=== PATIENT | female | born 1970 | race Caucasian/White ===

== ENCOUNTER 2022-02-15 13:01 | Outpatient (CLI) | payer OTHER | END 2022-02-15 13:02 | disposition home or self-care (01) | LOC: BICCT 13:01 | PROVIDERS: ATTEND Student in an Organized Health Care Education/Training Program | DX: J98.4 Other disorders of lung (principal); R91.8 Other nonspecific abnormal finding of lung field; E27.8 Other specified disorders of adrenal gland | CPT/HCPCS: 71260; 82565 ==

== ENCOUNTER 2022-08-09 12:23 | Outpatient (CLI) | payer OTHER | END 2022-08-09 12:24 | disposition home or self-care (01) | LOC: RAD 12:23 | PROVIDERS: ATTEND Student in an Organized Health Care Education/Training Program | DX: M54.32 Sciatica, left side (principal) ==

== ENCOUNTER 2022-10-22 10:22 | Outpatient (CLI) | payer OTHER | END 2022-10-22 10:23 | disposition home or self-care (01) | LOC: BICMAMMO 10:22 | PROVIDERS: ATTEND Student in an Organized Health Care Education/Training Program | DX: Z12.31 Encounter for screening mammogram for malignant neoplasm of breast (principal); Z80.3 Family history of malignant neoplasm of breast | CPT/HCPCS: 77067 ==